=== PATIENT | female | born 1960 | race Caucasian/White ===

== ENCOUNTER → 2016-07-07 | Outpatient (CLI) | payer BC ==
[~2016-07-07] MED LIST: CALC-5 PO; PRLSR20 PO
== END | disposition home or self-care (01) ==
LOC: C.PATHSPEC 17:32
PROVIDERS: ATTEND Obstetrics & Gynecology
DX: R93.8 Abnormal findings on diagnostic imaging of other specified body structures (principal); N85.00 Endometrial hyperplasia, unspecified

== ENCOUNTER → 2016-09-01 | Outpatient (CLI) | payer BC ==
[2016-09-01 17:52] LABS: URINE APPEARANCE CLEAR (CLEAR); URINE BILIRUBIN NEG (NEG); URINE COLOR YELLOW; URINE EPITHELIAL CELL AUTO >30 /lpf (0-5); URINE NITRITE NEG (NEG); URINE SPECIFIC GRAVITY 1.001 (1.000-1.030); UROBILINOGEN NEG (NEG)
[2016-09-01 17:57] LABS: MANUAL MICROSCOPIC REQUIRED? NO; REVIEW REQ? NO
== END | disposition home or self-care (01) ==
LOC: C.LABPVFM 11:19
PROVIDERS: ATTEND Obstetrics & Gynecology
DX: R30.0 Dysuria (principal)

== ENCOUNTER → 2017-05-22 | Outpatient (CLI) | payer BC ==
--- NOTE | 2017-05-22 13:53 | MAMMOGRAPHY REPORT ---
BILATERAL DIGITAL SCREENING MAMMOGRAM TOMOSYNTHESIS WITH CAD: 05/22/2017 CLINICAL HISTORY: Routine screening. Patient has no complaints. TECHNIQUE: Breast tomosynthesis in addition to standard 2D mammography was performed. Current study was also evaluated with a Computer Aided Detection (CAD) system. COMPARISON: Comparison is made to exams dated: 05/20/2016 mammogram, 04/04/2015 mammogram, 06/23/2012 mammogram, 05/22/2009 mammogram - [facility], 05/16/2008, and 10/05/2006. BREAST COMPOSITION: There are scattered areas of fibroglandular density in both breasts. FINDINGS: No suspicious masses, calcifications, or areas of architectural distortion are noted in ei ther breast. There has been no significant interval change compared to prior exams. Scattered bilater al benign-appearing calcifications are not significantly changed. IMPRESSION: ACR BI-RADS CATEGORY 2: BENIGN There is no mammographic evidence of malignancy. A 1 year screening mammogram is recommended. The pa tient will receive written notification of the results. Approximately 10% of breast cancers are not detected with mammography. A negative mammographic report should not delay biopsy if a clinically suggestive mass is present. Elizabeth Almeida M.D. /:05/22/2017 12:39:42 Tax Services Intern: Mattie DUGAN(Bandar)(Elias)(LEEROY), [facility] letter sent: Normal 1/2 BI-RADS Code: ACR BI-RADS Category 2: Benign
== END | disposition home or self-care (01) ==
LOC: C.MAMM 11:19
PROVIDERS: ATTEND Nurse Practitioner Women's Health
DX: Z12.31 Encounter for screening mammogram for malignant neoplasm of breast (principal)

== ENCOUNTER 2024-01-10 23:55 | Observation (INO) ==
[2024-01-11] MEDS: dilTIAZem HCl 5 MG/ML 5 ML VIAL IV ONE (00:15)
[2024-01-11] MEDS: SODIUM CHLORIDE 0.9% 500 ML IV STA (00:15)
--- NOTE | 2024-01-11 00:25 | Emergency Department Note ---
History of Present Illness General Chief complaint: Cardiac Assessment Stated complaint: POSS. AFIB Time Seen by Provider: 01/11/24 00:00 History of Present Illness This 63-year-old female presents ER complaining of racing heart for the past hour with chest discomfort that goes to her throat. Patient states she woke up and felt like she might be in A-fib. No recent A-fib. She states she had a cough for the past 3 weeks. Patient denies dyspnea, abdominal pain, fever, chills, leg pain or swelling. No history of PE or DVT. No prior heart attack or stroke. Home Medications Medication Instructions Recorded Confirmed Type aspirin 81 mg tablet,delayed 81 mg PO DAILY #90 tabs 03/03/19 01/11/24 Rx release (Adult Low Dose Aspirin) azelaic acid 15 % topical gel 1 appln topical .COMPLEX PRN 03/07/19 01/11/24 Rx (Finacea) rosacea #50 grams coenzyme Q10 100 mg capsule 100 mg PO QAM 07/08/19 01/11/24 History cyanocobalamin (vitamin B-12) 2,500 mcg PO DAILY 07/08/19 01/11/24 History 2,500 mcg tablet cholecalciferol (vitamin D3) 25 5,000 unit PO DAILY 12/14/20 01/11/24 History mcg (1,000 unit) capsule fluticasone 250 mcg-salmeterol 50 1 inh inhalation BID PRN wheezing 04/07/22 01/11/24 Rx mcg/dose blistr powdr for #60 ea inhalation (Advair Diskus) calcium carbonate (Calcium 500) 1,000 mg PO DAILY 12/11/22 01/11/24 History sertraline 25 mg tablet 25 mg PO DAILY #90 tabs 04/03/23 01/11/24 Rx loratadine 10 mg tablet 10 mg PO DAILY PRN allergy 10/07/23 01/11/24 Rx symptoms #100 tabs atorvastatin 10 mg tablet 10 mg PO QPM #90 tabs 12/01/23 01/11/24 Rx metformin 500 mg tablet,extended 500 mg PO BID #60 tabs 12/01/23 01/11/24 Rx release 24 hr naltrexone 50 mg tablet 25 mg (1/2 x 50 mg) PO DAILY #15 12/21/23 01/11/24 Rx tabs albuterol sulfate 90 mcg/actuation 1 inh inhalation QID PRN Shortness 01/11/24 01/11/24 History aerosol inhaler Of Breath Or Wheezing famotidine 20 mg tablet 0 mg PO DAILY 01/11/24 01/11/24 History Allergies Allergy/AdvReac Type Severity Reaction Status Date / Time No Known Allergies Allergy Mild Verified 01/11/24 02:01 Past Med/Surg History Problem List (Updated 01/11/24 @ 00:25 by Tricia Burnette PA-C) Atrial fibrillation with rapid ventricular response (Acute) FHx: rheumatoid arthritis In brother Elevated antinuclear antibody (MARILYN) level Disordered eating Prediabetes Obesity Jaw pain Depression Dental caries Yeast infection Allergic rhinitis Fatigue Acid reflux disease (Chronic) Paroxysmal atrial fibrillation (Chronic) Hypertension (Chronic) Vitamin D deficiency (Chronic) Annual physical exam Hyperlipidemia (Chronic) Asthma (Chronic) Medical History (Updated 01/11/24 @ 00:25 by Tricia Burnette PA-C) Endometrial adenocarcinoma Vasovagal syncope Surgical History (Updated 12/02/23 @ 10:46 by Christopher Montero DO) History of total abdominal hysterectomy History of section History of hysterectomy with bilateral oophorectomy Family History Father Myocardial infarction Grandfather (Paternal) Myocardial infarction Aunt Ovarian cancer Brother Prostate cancer, Onset Age: 62 Denies family history of Breast cancer Colorectal cancer Social History Smoking Status: Former smoker Age Started Using Tobacco: 18; Age Quit Using Tobacco: 39; packs per day: 1; Cigarettes Per Day: 20; Second Hand Exposure: No; Do You Dip or Chew Tobacco: No; Hx Alcohol Use: Yes Alcohol type: hard liquor Alcohol type Comment: Rum and Coke Hx Substance Use: No Preferred Language: Danish Communication Ability: Effective Visual Impairment: No Limitations Hearing Ability: Normal marital status: Current Living Situation: Spouse current occupational status: retired How many Children do You have: 2 Feels Safe at Home: Yes Childhood Exposure to Second-Hand Smoke: Yes Diet: regular caffeine: Yes Dental Care, Regularly: Yes Physical Activity Frequency: Daily Seatbelt Use: always Sunscreen Use: Yes Review of Systems A total of 10 systems reviewed and were otherwise negative Physical Exam Vital Signs Vital Signs - 24 hr 01/10/24 23:57 01/11/24 00:10 01/11/24 00:17 Temperature 36.6 C Temperature Source Temporal Artery Scan Pulse Rate 130 H 110 H Pulse Rate [Apical] 87 Respiratory Rate 18 14 Respiratory Effort / Characteristics Non-Labored Spontaneous Respiratory Depth Normal Blood Pressure 155/94 H Blood Pressure [Left Arm] 135/83 Blood Pressure Mean 114 Blood Pressure Mean [Left Arm] 100 Pulse Oximetry 96 96 Oxygen Delivery Method Room Air Room Air Sepsis Recent Fever Within 48 Hours No Sepsis New/Unexplained Change in Mental Status N/A Sepsis Action Taken by Nursing No Action Required 01/11/24 02:00 01/11/24 03:00 Temperature Temperature Source Pulse Rate 60 Pulse Rate [Apical] 68 Respiratory Rate 12 16 Respiratory Effort / Characteristics Respiratory Depth Blood Pressure 99/72 L Blood Pressure [Left Arm] 126/71 Blood Pressure Mean 76 Blood Pressure Mean [Left Arm] 89 Pulse Oximetry 96 100 Oxygen Delivery Method Room Air Sepsis Recent Fever Within 48 Hours Sepsis New/Unexplained Change in Mental Status Sepsis Action Taken by Nursing VITALS: Vitals are noted on the nurse's note and reviewed by myself. Vital signs tachycardic GENERAL: Pleasant female, in no acute distress, nondiaphoretic, well-developed well-nourished. SKIN: Capillary reflex less than 2 seconds. HEENT: Normocephalic. PERRLA. EOMI. Nares patent. Mucous membranes moist. Neck is supple without nuchal rigidity. HEART: Tachycardic irregularly irregular LUNGS: Clear to auscultation bilaterally without wheezes, rales or rhonchi. No retractions or accessory muscle use. ABDOMEN: Positive bowel sounds x 4. Normal tympanic percussion. Soft, nontender, without masses or organomegaly. Shook sign negative. No guarding or rebound tenderness. no CVA tenderness MUSCULOSKELETAL: No gross musculoskeletal defects. NEURO: Patient was alert and oriented to person place and time. No focal neurological deficits. Course Administered Medications Discontinued Medications Diltiazem HCl (Diltiazem Hcl 5 Mg/Ml 5 Ml Vial) Confirm Administered Dose 25 mg IV .nTAG Interactive-MED ONE Stop: 01/11/24 00:08 Last Admin: 01/11/24 00:15 Dose: Not Given Documented By: CHERELLE Diltiazem HCl (Diltiazem Hcl 5 Mg/Ml 5 Ml Vial) 20 mg IV NOW STA Stop: 01/11/24 00:08 Last Admin: 01/11/24 00:50 Dose: Not Given Documented By: CHERELLE Diltiazem HCl (Diltiazem Hcl 5 Mg/Ml 5 Ml Vial) 10 mg IV NOW STA Stop: 01/11/24 00:50 Last Admin: 01/11/24 00:52 Dose: 10 mg Documented By: CHERELLE Co-signed By: CHICHI Sodium Chloride (Nss) 500 mls @ 999 mls/hr IV .Q31M STA Stop: 01/11/24 00:37 Last Infusion: 01/11/24 00:49 Dose: Infused Documented By: Admin: 01/11/24 00:15 Dose: 999 mls/hr Documented By: CHERELLE Diltiazem HCl 125 mg/ Dextrose 125 mls @ 5 mls/hr IV .Q24H [facility]; Protocol Stop: 02/10/24 00:14 Last Admin: 01/11/24 00:48 Dose: Not Given Documented By: CHERELLE Ioversol (Optiray 320 125ml) 125 ml IV ONCE ONE Stop: 01/11/24 01:57 Last Admin: 01/11/24 01:56 Dose: 118 ml Documented By: YUIR Sinhaaneous (Stat Iv Infusion Titration Per Protocol) 1 each N/A NOW STA Stop: 01/11/24 00:08 Last Admin: 01/11/24 03:03 Dose: Not Given Documented By: OSEI Critical Care Time Critical Care Time: Yes Total Critical Care Time: 35 I have personally spent 35 minutes of critical care time in the direct management of this patient. This includes bedside care, interpretation of diagnostic studies, and testing, discussion with consultants, patient, and family members, and other required patient management activities. This 35 minutes is in excess of all separately billable procedures. Medical Decision Making Medical Records Attestation: I reviewed the patient's medical records. Home Medications Current Medication List: was personally reviewed by me Laboratory Data Attestation: I reviewed the patient's lab results. 01/11/24 00:13 01/11/24 00:13 Lab Results 01/11/24 01/11/24 01/11/24 Range/Units 00:13 00:16 02:19 WBC 10.68 (4.8-10.8) K/ul RBC 4.62 (4.20-5.40) M/uL Hgb 14.4 (12.0-16.0) g/dl Hct 43.3 (37.0-47.0) % MCV 93.7 (80.0-100.0) fL MCH 31.2 (25.0-34.0) pg MCHC 33.3 (32.0-36.0) g/dL RDW Std Deviation 44.1 (36.4-46.3) fL RDW Coeff of Stevan 12.9 (11.5-14.5) % Plt Count 236 (130-400) K/uL MPV 11.0 (9.4-12.4) fL Immature Gran % (Auto) 0.2 % Neut % (Auto) 57.7 % Lymph % (Auto) 31.3 % [place] % (Auto) 8.6 % Eos % (Auto) 1.7 % Baso % (Auto) 0.5 % Neut # (Auto) 6.17 (1.40-6.50) K/uL Lymph # (Auto) 3.34 (1.20-3.40) K/uL [place] # (Auto) 0.92 H (0.11-0.59) K/uL Eos # (Auto) 0.18 (0.00-0.50) K/uL Baso # (Auto) 0.05 (0.00-0.20) K/uL Immature Gran # (Auto) 0.02 (0.01-0.20) K/uL PT 9.9 (9.0-12.0) Seconds INR 0.9 (0.9-1.1) APTT 30 (21-31) Seconds PTT Ratio 1.1 Sodium 141 (136-145) mmol/L Potassium 3.6 (3.5-5.1) mmol/L Chloride 106 (98-107) mmol/L Carbon Dioxide 27 (21-32) mmol/L Anion Gap 8 (3-11) BUN 20 (6-23) mg/dl Creatinine 0.83 (0.6-1.2) mg/dl Est Cr Clr Drug Dosing 77.3 ml/min Est GFR ( Amer) 86.4 ml/min Est GFR (Non-Af Amer) 74.5 ml/min BUN/Creatinine Ratio 24.1 H (10-20) Glucose 109 H (70-99(Fasting)) mg/dl Calcium 9.5 (8.6-10.3) mg/dl Magnesium 2.1 (1.7-2.4) mg/dl Total Bilirubin 0.5 (0.2-1.0) mg/dl AST 17 (13-39) U/L ALT 16 (7-52) U/L Alkaline Phosphatase 93 (34-104) U/L Troponin I High Sens 12.7 13.3 (0-14) pg/ml Total Protein 7.2 (6.0-8.3) gm/dl Albumin 4.5 (3.4-5.0) gm/dl Globulin 2.7 (2.5-4.0) gm/dl Albumin/Globulin Ratio 1.7 (0.9-2) TSH 3.248 (0.300-4.500) uIu/ml Ethyl Alcohol mg/dL < 10.0 (<10.0) mg/dl Adenovirus (PCR) Not Detected (NotDetected) B. pertussis DNA (PCR) Not Detected (NotDetected) B.parapertussis DNA PCR Not Detected (NotDetected) C. pneumoniae DNA (PCR) Not Detected (NotDetected) Coronavirus OC43 (PCR) Not Detected (NotDetected) Coronavirus HKU1 (PCR) Not Detected (NotDetected) Coronavirus 229E (PCR) Not Detected (NotDetected) SARS-CoV-2 (PCR) Not Detected (NotDetected) Coronavirus NL63 (PCR) Not Detected (NotDetected) Human Metapneumovir PCR Not Detected (NotDetected) Influenza Type A (PCR) Not Detected (NotDetected) Influenza Type B (PCR) Not Detected (NotDetected) M. pneumoniae (PCR) Not Detected (NotDetected) Parainfluenza 1 (PCR) Not Detected (NotDetected) Parainfluenza 2 (PCR) Not Detected (NotDetected) Parainfluenza 3 (PCR) Not Detected (NotDetected) Parainfluenza 4 (PCR) Not Detected (NotDetected) RSV (PCR) Not Detected (NotDetected) Entero/Rhino (PCR) Not Detected (NotDetected) Imaging Data Attestation: I personally reviewed and interpreted this imaging study as follows: Radiologist's Impression: Chest CTA 01/11/24 00:08 Exam(s): CTA CHEST IV Amt: 118 ml optiray 320 EXAM: CT Angiography Chest With Intravenous Contrast CLINICAL HISTORY: Reason for exam: PE. TECHNIQUE: Axial computed tomographic angiography images of the chest with intravenous contrast. CTDI is 27.07 mGy and DLP is 748.85 mGy-cm. Automated exposure control was utilized for the study. A dose lowering technique was utilized adhering to the principles of ALARA. MIP reconstructed images were created and reviewed. COMPARISON: No relevant prior studies available. FINDINGS: Pulmonary arteries: The pulmonary arterial tree is well opacified with contrast. No pulmonary embolism is identified. Aorta: The thoracic aorta is nondilated. There is no aneurysm or dissection. Lungs: Small amount of scattered bibasilar subsegmental atelectasis. No focal consolidation is seen. No pneumothorax or pleural effusion. Pleural space: See above. Heart: The heart is mildly enlarged. No pericardial effusion is seen. No evidence of RV dysfunction. Bones/joints: Mild degenerative changes throughout the spine. No acute fracture or destructive bone lesion is seen. No dislocation. Soft tissues: Unremarkable. Lymph nodes: Unremarkable. No enlarged lymph nodes. IMPRESSION: 1. Small amount of scattered bibasilar subsegmental atelectasis. No focal consolidation is seen. No pneumothorax or pleural effusion. 2. The thoracic aorta is nondilated. There is no aneurysm or dissection. 3. The pulmonary arterial tree is well opacified with contrast. No pulmonary embolism is identified. Electronically signed by: Santos Lopez MD 01/11/24 03:22 AM [facility] Narrative Prior records/ancillary studies reviewed. Triage Nursing notes reviewed. Additional history obtained from family. The patient's history was concerning for palpitations. Differential diagnosis: Etiologies such as premature contractions, electrolyte abnormality, cardiac dysrhythmia, thyroid dysfunction, pulmonary embolism, infection, gastrointestinal, as well as others were entertained. Physical examination: Benign as above. ER treatment provided: Cardizem, IV fluids On reassessment the patient felt better. Diagnostic interpretation by me: An order was placed for continuous cardiac monitoring. The monitor shows a rate of 60-1 50 with a A-fib rhythm per my interpretation. The electrocardiogram was ordered for palpitaions ECG: Irregularly irregular with no acute ST-T wave changes. Impression A-fib RVR independently interpreted by myself EKG ordered for chest pain EKG: Normal sinus, normal intervals, no acute ST-T wave changes. Impression normal sinus rhythm independently interpreted by myself The labs Independently Interpreted by myself revealed no worrisome leukocytosis, stable H&H, glucose 109 Imaging studies: Chest x-ray with no acute consolidation, pneumothorax or free air per my independent interpretation HEART SCORE: Hx: high/mod/low suspicion: 0 ECG: ST depression/nonspecific changes/normal: 1 Age: Greater than 65/45-64/less than 45: 1 Risk factors: (Hypertension, hyperlipidemia, diabetes, coronary disease, tobacco use, cocaine use): 1 Troponin: Greater than 2 times normal limits/1-2 times normal limits/normal: 0 Total: 3 CHADS2 Score Sex (male 0, female 1): 1 Congestive HF (1): 0 Hypertension (1) :1 Age >75 years (1) :0 Diabetes mellitus (1):1 Stroke/TIA/TE (2): 0 Score: 3 CHADS2 Unadjusted ischemic stroke rate (% per year) 0: 0.6% 1: 3.0% 2: 4.2% 3: 7.1% 4: 11.1% 5: 12.5% 6: 13.0% Consultation: A consultation was placed with the hospitalist. The case was discussed and diagnostics were reviewed. The patient was evaluated in the ER for further treatment. This appears to be consistent with A-fib with RVR. Patient's ischemic stroke score was 7.1% (she has high blood pressure, diabetes and female). Patient was given Cardizem. Heart rate improved. Medicine was consulted and the case was discussed. She will be admitted to the medical service. Patient is agreeable. By the evaluation outlined above emergent etiologies such as electrolyte abnormality, thyroid dysfunction, pulmonary embolism, infection, as well as others were deemed relatively unlikely. The pt informed about the findings as listed above. All questions were answered and pleased with the treatment. The chart was completed utilizing [employer] voice recognition software. Grammatical errors, random word insertions, pronoun errors, and incomplete sentences are an occassional consequence of this system due to software limitations, ambient noise, and hardware issues. Any formal questions or concerns about the content, text, or information contained within the body of this dictation should be directly addressed to the physician assistant fitness manager for clarification. Impression & Plan Atrial fibrillation with rapid ventricular response Discharge Plan Visit Data Chief Complaint: Cardiac Assessment Stated Complaint: POSS. AFIB ED Provider: Yu Zepeda ED Midlevel Provider: Tricia Burnette Discharge Problem: Atrial fibrillation with rapid ventricular response Patient Disposition: Admitted As Inpatient Condition: Good Forms Stand Alone Forms: [facility] [place] Prescriptions Prescriptions: No Action aspirin [Adult Low Dose Aspirin] 81 mg tablet,delayed release (DR/EC) 81 mg PO DAILY Qty: 90 3RF azelaic acid [Finacea] 15 % gel 1 appln TOP .COMPLEX PRN (Reason: rosacea) Qty: 50 1RF Rx Instructions: 1 applic TOP apply sparingly daily to face PRN; cholecalciferol (vitamin D3) 25 mcg (1,000 unit) capsule 5,000 unit PO DAILY fluticasone propion-salmeterol [Advair Diskus] 250-50 mcg/dose blister with device 1 inh inhalation BID PRN (Reason: wheezing) Qty: 60 11RF sertraline 25 mg tablet 25 mg PO DAILY Qty: 90 3RF loratadine 10 mg tablet 10 mg PO DAILY PRN (Reason: allergy symptoms) Qty: 100 3RF atorvastatin 10 mg tablet 10 mg PO QPM Qty: 90 3RF calcium carbonate [Calcium 500] 500 mg calcium (1,250 mg) tablet,chewable 1,000 mg PO DAILY coenzyme Q10 100 mg capsule 100 mg PO QAM cyanocobalamin (vitamin B-12) 2,500 mcg tablet 2,500 mcg PO DAILY metformin 500 mg tablet extended release 24 hr 500 mg PO BID Qty: 60 2RF Rx Instructions: Take with food. naltrexone 50 mg tablet 25 mg PO DAILY Qty: 15 2RF famotidine 20 mg Tablet 0 mg PO DAILY Rx Instructions: PT UNSURE OF STRENGTH, UNABLE TO VERIFY albuterol sulfate 90 mcg/actuation Hfa Aerosol Inhaler 1 inh INHALATION QID PRN (Reason: Shortness Of Breath Or Wheezing) Referrals Referrals: Christopher Montero DO [Primary Care Provider] -
[2024-01-11 00:39] LABS: Basophils # (auto) 0.05 K/uL (0.00-0.20); Basophils % (auto) 0.5 %; Eosinophils # (auto) 0.18 K/uL (0.00-0.50); Eosinophils % (auto) 1.7 %; Hematocrit (blood only) 43.3 % (37.0-47.0); Hemoglobin 14.4 g/dl (12.0-16.0); Immature Granulocytes # (auto) 0.02 K/uL (0.01-0.20); Immature Granulocytes % (auto) 0.2 %; Lymphocytes # (auto) 3.34 K/uL (1.20-3.40); Lymphocytes % (auto) 31.3 %; Mean Corpuscular Hemoglobin 31.2 pg (25.0-34.0); Mean Corpuscular Hgb Conc 33.3 g/dL (32.0-36.0); Mean Corpuscular Volume 93.7 fL (80.0-100.0); Monocytes # (auto) 0.92 K/uL (0.11-0.59); Monocytes % (auto) 8.6 %; Neutrophils # (auto) 6.17 K/uL (1.40-6.50); Neutrophils % (auto) 57.7 %; Platelet Count 236 K/uL (130-400); RDW Coefficient of Variation 12.9 % (11.5-14.5); RDW Standard Deviation 44.1 fL (36.4-46.3); Red Blood Count 4.62 M/uL (4.20-5.40); White Blood Count 10.68 K/ul (4.8-10.8)
[2024-01-11] MEDS: dilTIAZem HCL 125 MG in DEXTROSE 5% 100 ML IV SCH (00:48)
[2024-01-11] MEDS: dilTIAZem HCl 5 MG/ML 5 ML VIAL IV STA ×2 (00:50→00:52)
[2024-01-11 00:51] LABS: Albumin Globulin Ratio 1.7 (0.9-2); Albumin Level 4.5 gm/dl (3.4-5.0); BUN Creatinine Ratio 24.1 (10-20); Bilirubin,Total 0.5 mg/dl (0.2-1.0); Calcium 9.5 mg/dl (8.6-10.3); Creatinine Clr Calc Pharmacy 77.3 ml/min; Est GFR (African American) 86.4 ml/min; Est GFR (Non-African American) 74.5 ml/min; Globulin 2.7 gm/dl (2.5-4.0); Magnesium 2.1 mg/dl (1.7-2.4); Potassium 3.6 mmol/L (3.5-5.1); Total Protein 7.2 gm/dl (6.0-8.3)
[2024-01-11 00:58] LABS: Troponin I High Sensitivity 12.7 pg/ml (0-14)
[2024-01-11 01:03] LABS: INR 0.9 (0.9-1.1); Partial Thromboplastin Ratio 1.1; Partial Thromboplastin Time 30 Seconds (21-31); Prothrombin Time 9.9 Seconds (9.0-12.0)
[2024-01-11 01:07] LABS: Thyroid Stimulating Hormone 3.248 uIu/ml (0.300-4.500)
[2024-01-11 01:24] LABS: Adenovirus PCR Not Detected (NotDetected); Bordetella parapertussis PCR Not Detected (NotDetected); Bordetella pertussis PCR Not Detected (NotDetected); Chlamydia pneumoniae PCR Not Detected (NotDetected); Coronavirus 229E PCR Not Detected (NotDetected); Coronavirus CoV-2 (COVID19)PCR Not Detected (NotDetected); Coronavirus HKU1 PCR Not Detected (NotDetected); Coronavirus NL63 PCR Not Detected (NotDetected); Coronavirus OC43PCR Not Detected (NotDetected); Human Metapneumovirus PCR Not Detected (NotDetected); Influenza A PCR Not Detected (NotDetected); Influenza B PCR Not Detected (NotDetected); Mycoplasma pneumoniae PCR Not Detected (NotDetected); Parainfluenza Virus 1 PCR Not Detected (NotDetected); Parainfluenza Virus 2 PCR Not Detected (NotDetected); Parainfluenza Virus 3 PCR Not Detected (NotDetected); Parainfluenza Virus 4 PCR Not Detected (NotDetected); Respiratory Syncytial VirusPCR Not Detected (NotDetected); Rhinovirus/Enterovirus PCR Not Detected (NotDetected)
[2024-01-11] MEDS: OPTIRAY 320 125ml IV ONE (01:56)
--- NOTE | 2024-01-11 02:36 | History & Physical Report ---
Date of Service January 11, 2024 Assessment & Plan (1) Atrial fibrillation with rapid ventricular response: (2) Prediabetes: (3) Obesity: (4) Depression: (5) Acid reflux disease: Plan Atrial Fibrillation with RVR -Received 1x IV push Cardizem, has remained in sinus rhythm since -Admit to telemetry for observation -BP a bit low after Cardizem (currently 99/72), will hold additional meds at this time -Cardiology consulted, appreciate recommendations for rate/rhythm control and consideration for anticoagulation -Echocardiogram ordered -Trop repeat with minimal elevation, repeat pending -Will supplement potassium (K 3.6) Pre-Diabetes -Hold home metformin -Monitor BSG, will defer insulin at this time Asthma -Continue home inhalers Obesity -Continue naltrexone Depression -Continue sertraline Admit to: telemetry Diet: carb consistent VTE Prophylaxis: Heparin Code Status: Conditional, no intubation or ventilator History of Present Illness Primary Care Provider: Christopher Montero DO Taryn Perry is a 63 year-old female with past medical history of acid reflux, HTN, HLD, asthma, obesity who presented to the ED after awakening overnight to chest pain and palpitations. She has a history of paroxysmal atrial fibrillation, notes her only prior episode occurred in the mid while she was in the hospital with a broken leg. In 2021 she was seen by [facility] [place] for paroxysmal a. fib and had a 30 day event monitor which did not show any episodes of atrial fibrillation. She states that this past week has been a bit stressful as her [id number]-ewd and in the past few days she has been busy with family in town/services etc, also endorses that yesterday she ate notably more salt that usual. Otherwise she has been feeling well, denies fever/body aches/chills. Endorses an occasional cough associated with post nasal drip but denies shortness of breath. Denies changes in bowel or bladder habits. At time of encounter, patient is in normal sinus rhythm and states her prior symptoms have resolved. Patient follows with weight management and endorses recently starting Naltrexone for food cravings, has been on it for approximately two weeks, states she has tolerated it well without side effects. She denies any other recent changes to her home medications. ED Course: -Diltiazem IV Push -CXR, CTA chest, CBC, CMP Allergies Allergy/AdvReac Type Severity Reaction Status Date / Time No Known Allergies Allergy Mild Verified 01/13/24 11:46 Home Medications Medication Instructions Recorded Confirmed Type aspirin 81 mg tablet,delayed 81 mg PO DAILY #90 tabs 03/03/19 01/13/24 Rx release (Adult Low Dose Aspirin) azelaic acid 15 % topical gel 1 appln topical .COMPLEX PRN 03/07/19 01/13/24 Rx (Finacea) rosacea #50 grams coenzyme Q10 100 mg capsule 100 mg PO QAM 07/08/19 01/13/24 History cyanocobalamin (vitamin B-12) 2,500 mcg PO DAILY 07/08/19 01/13/24 History 2,500 mcg tablet cholecalciferol (vitamin D3) 25 5,000 unit PO DAILY 12/14/20 01/13/24 History mcg (1,000 unit) capsule fluticasone 250 mcg-salmeterol 50 1 inh inhalation BID PRN wheezing 04/07/22 Rx mcg/dose blistr powdr for #60 ea inhalation (Advair Diskus) calcium carbonate (Calcium 500) 1,000 mg PO DAILY 12/11/22 01/13/24 History sertraline 25 mg tablet 25 mg PO DAILY #90 tabs 04/03/23 01/13/24 Rx loratadine 10 mg tablet 10 mg PO DAILY PRN allergy 10/07/23 01/13/24 Rx symptoms #100 tabs atorvastatin 10 mg tablet 10 mg PO QPM #90 tabs 12/01/23 01/13/24 Rx metformin 500 mg tablet,extended 500 mg PO BID #60 tabs 12/01/23 01/13/24 Rx release 24 hr naltrexone 50 mg tablet 25 mg (1/2 x 50 mg) PO DAILY #15 12/21/23 01/13/24 Rx tabs albuterol sulfate 90 mcg/actuation 1 inh inhalation QID PRN Shortness 01/11/24 01/13/24 History aerosol inhaler Of Breath Or Wheezing apixaban 5 mg tablet (Eliquis) 5 mg PO BID #60 tabs 01/11/24 01/13/24 Rx famotidine 20 mg tablet 0 mg PO DAILY 01/11/24 01/13/24 History metoprolol tartrate 25 mg tablet 25 mg PO DAILY PRN irregular heart 01/11/24 01/13/24 Rx beat / palpitations #30 tabs Past Med/Surg History Problem List (Updated 01/11/24 @ 09:57 by Kenneth Benavidez MD) Chest pain syndrome Atrial fibrillation with rapid ventricular response (Acute) FHx: rheumatoid arthritis In brother Elevated antinuclear antibody (MARILYN) level Disordered eating Prediabetes Obesity Jaw pain Depression Dental caries Yeast infection Allergic rhinitis Fatigue Acid reflux disease (Chronic) Paroxysmal atrial fibrillation (Chronic) Hypertension (Chronic) Vitamin D deficiency (Chronic) Annual physical exam Hyperlipidemia (Chronic) Asthma (Chronic) Medical History (Updated 01/11/24 @ 09:57 by Kenneth Benavidez MD) Endometrial adenocarcinoma Vasovagal syncope Surgical History (Updated 12/02/23 @ 10:46 by Christopher Montero DO) History of total abdominal hysterectomy History of section History of hysterectomy with bilateral oophorectomy Family History Father Myocardial infarction Grandfather (Paternal) Myocardial infarction Aunt Ovarian cancer Brother Prostate cancer, Onset Age: 62 Denies family history of Breast cancer Colorectal cancer Social History Smoking Status: Former smoker Age Started Using Tobacco: 18; Age Quit Using Tobacco: 39; packs per day: 1; Cigarettes Per Day: 20; Second Hand Exposure: No; Do You Dip or Chew Tobacco: No; Hx Alcohol Use: Yes Alcohol type: hard liquor Alcohol type Comment: Rum and Coke Hx Substance Use: No Preferred Language: Bolivian Communication Ability: Effective Visual Impairment: No Limitations Hearing Ability: Normal Sole Seamer Required: No Beliefs That Will Affect Care: None marital status: Current Living Situation: Spouse current occupational status: retired How many Children do You have: 2 Feels Safe at Home: Yes Childhood Exposure to Second-Hand Smoke: Yes Diet: regular caffeine: Yes Dental Care, Regularly: Yes Physical Activity Frequency: Daily Seatbelt Use: always Sunscreen Use: Yes Assistive Devices: Glasses Review of Systems Review of Systems: As per above Physical Exam Constitutional: WD/WN, vitals as above Eyes: no conjunctival abnormality ENMT: Ears: no external ear abnormality Nose: no external nose abnormality Moist mucous membranes Respiratory: normal respiratory effort, lungs clear to auscultation Cardiovascular: RRR, no murmur, no edema Gastrointestinal (Abdomen): Inspection/Auscultation: abdomen normal to inspection Percussion/Palpation: abdomen soft; abdomen nontender Musculoskeletal: Moves all limbs independently Skin: no rashes, warm and dry Neurologic: No focal defects Psychiatric: A+Ox3, euthymic affect Results & Data Results & Data Vital Signs (Past 12 Hours) Vital Signs Temp Pulse Pulse Resp BP BP Pulse Ox 01/11/24 02:00 68 12 126/71 96 01/11/24 00:17 87 14 135/83 96 01/11/24 00:10 110 H 01/10/24 23:57 36.6 C 130 H 18 155/94 H 96 O2 Del Method 01/11/24 02:00 Room Air 01/11/24 00:17 Room Air 01/11/24 00:10 01/10/24 23:57 Room Air Supervising Physician Co-Signing Physician Notes Attending addendum: I have physically seen this patient, have supervised the medical residents activities, and agree with the H&P unless as otherwise noted. Assessment and Plan: Atrial fibrillation with RVR- Status post diltiazem push 20 mg IV from the ED EKG with atrial fibrillation at rate 123 Follow-up EKG with normal sinus rhythm at 69 The patient will be admitted to telemetry for serial cardiac enzymes, serial EKG's, cardiac rhythm monitoring and a 2-D echocardiogram with Dopplers. Potassium 3.6, give oral IV daptomycin for Magnesium level ordered and pending Follow serial laboratories Prediabetes- Hold metformin Placed on Accu-Cheks with NovoLog SSI Asthma- Continue routine inhalers Remaining orders and notations as noted Resident Activity Tracking Resident Involvement: Resident Care Provided Care Provided: Adult Hospital Medicine (3) Obesity Body mass index: BMI 39.0-39.9 Obesity classification: adult class 2 (BMI 35 - 39.9) Obesity type: unspecified obesity type Serious obesity comorbidity presence: unspecified whether serious comorbidity present Qualified Code(s): E66.9 - Obesity, unspecified; Z68.39 - Body mass index [BMI] 39.0-39.9, adult
[2024-01-11] MEDS: STAT IV Infusion **Titration per Protocol STA (03:03)
--- NOTE | 2024-01-11 03:23 | CT Scan Report ---
Exam(s): CTA CHEST IV Amt: 118 ml optiray 320 EXAM: CT Angiography Chest With Intravenous Contrast CLINICAL HISTORY: Reason for exam: PE. TECHNIQUE: Axial computed tomographic angiography images of the chest with intravenous contrast. CTDI is 27.07 mGy and DLP is 748.85 mGy-cm. Automated exposure control was utilized for the study. A dose lowering technique was utilized adhering to the principles of ALARA. MIP reconstructed images were created and reviewed. COMPARISON: No relevant prior studies available. FINDINGS: Pulmonary arteries: The pulmonary arterial tree is well opacified with contrast. No pulmonary embolism is identified. Aorta: The thoracic aorta is nondilated. There is no aneurysm or dissection. Lungs: Small amount of scattered bibasilar subsegmental atelectasis. No focal consolidation is seen. No pneumothorax or pleural effusion. Pleural space: See above. Heart: The heart is mildly enlarged. No pericardial effusion is seen. No evidence of RV dysfunction. Bones/joints: Mild degenerative changes throughout the spine. No acute fracture or destructive bone lesion is seen. No dislocation. Soft tissues: Unremarkable. Lymph nodes: Unremarkable. No enlarged lymph nodes. IMPRESSION: 1. Small amount of scattered bibasilar subsegmental atelectasis. No focal consolidation is seen. No pneumothorax or pleural effusion. 2. The thoracic aorta is nondilated. There is no aneurysm or dissection. 3. The pulmonary arterial tree is well opacified with contrast. No pulmonary embolism is identified. Electronically signed by: Santos Lopez MD 01/11/24 03:22 AM
[2024-01-11] MEDS ORDERED: ALBUTEROL HFA 8 GM INHALER INH PRN (05:16)
[2024-01-11] MEDS ORDERED: LORATADINE 10 MG TAB PO PRN (05:16)
[2024-01-11] MEDS ORDERED: POLYETHYLENE (MIRALAX) 17 GM PACK PO PRN (05:16)
[2024-01-11] MEDS ORDERED: ACETAMINOPHEN 325 MG TAB PO PRN (05:16)
[2024-01-11] MEDS: POTASSIUM CHLORIDE CRTAB 20 MEQ TABCR PO STA ×2 (05:36→11:41)
--- NOTE | 2024-01-11 06:47 | XRay Report ---
XR chest 1V portable CLINICAL HISTORY: Dysrhythmia. COMPARISON STUDY: Chest radiograph December 05, 2017. FINDINGS: Lung volumes are normal. Lungs are clear. There is no pneumothorax or pleural effusion. Car diomegaly is unchanged. Mediastinal contours are normal. There is no evidence for pulmonary edema. IMPRESSION: No acute cardiopulmonary findings. ACT 112: Negative or not required by law. Electronically signed by: Bg Mejia M.D. 01/11/2024 6:45 AM
[2024-01-11] MEDS: ASPIRIN 81 MG ECTAB PO SCH (07:41)
[2024-01-11] MEDS: FAMOTIDINE 20 MG TAB PO SCH (07:41)
[2024-01-11] MEDS: SERTRALINE HCL 50 MG TABLET PO SCH (07:41)
[2024-01-11] MEDS: HEPARIN SOD 5,000 UNIT/0.5 ML VIAL SQ SCH (07:41)
[2024-01-11] MEDS: FLUTICASONE/VILANTEROL 200/25MCG 14 PUFFS/INHALER INH SCH (07:41)
[2024-01-11] MEDS: NALTREXONE HCL 50 MG TAB PO SCH (07:42)
--- NOTE | 2024-01-11 09:25 | XCELERA ---
[id number]
--- NOTE | 2024-01-11 10:00 | Cardiology Consultation ---
Date of Consultation January 11, 2024 Assessment & Plan (1) Paroxysmal atrial fibrillation: -Total duration approximately 2 hours in length. -Converted spontaneously to normal sinus rhythm. -Would start long-term anticoagulation as her [id number] score is at least 2 (hypertension, gender), if not for (hyperglycemia, borderline age). -Reduce metoprolol to tartrate 25 mg as needed rapid atrial fibrillation. -Stable for hospital discharge. (2) Chest pain syndrome: -Likely secondary to atrial fibrillation with rapid ventricular response. -Fortunately, high-sensitivity troponins normal in the face of 2 hours of rapid atrial fibrillation. -No indication of an acute coronary syndrome. (3) Hypertension: -Adequate control on current regimen. (4) Hyperlipidemia: -Continue atorvastatin. History of Present Illness Attending Physician: Wilda Gaines MD History of Present Illness Mrs. Perry is a 63-year-old female admitted earlier today after a paroxysm of atrial fibrillation. This consultation was ordered to assist in cardiac management. Of note, the patient is well-known to me from the outpatient setting. The patient was in her usual state of health until late last evening when she was awakened from a sound sleep with palpitations, a rapid heart rate, and a right-sided chest discomfort. This was reminiscent of her initial episode of atrial fibrillation which occurred back in 2006. On arrival here, patient was noted to be in atrial fibrillation with a rapid ventricular response. She received intravenous diltiazem and spontaneously converted to sinus rhythm. We have had a long discussion regarding the management of paroxysmal atrial fibrillation and her particular situation. Currently, patient is resting comfortably in bed without complaints. Past medical and surgical history 1. Minimal coronary artery diseaseAugust 2009 2. Hypertension 3. Hypercholesterolemia 4. Paroxysmal atrial [id number], ankle fracture 5. Vasovagal syncope 6. Symptomatic PVCs 7. Hyperglycemia 8. GERD 9. Vitamin D deficiency 10. ABDIAS/BSO 11. Social history and lives with her Quit tobacco use at age 39 Social alcohol Family history Father at the age of 44 from an PR Review of systems A 10 point review of system was undertaken and negative except described above. Allergies Allergy/AdvReac Type Severity Reaction Status Date / Time No Known Allergies Allergy Mild Verified 01/11/24 02:01 Home Medications Medication Instructions Recorded Confirmed Type aspirin 81 mg tablet,delayed 81 mg PO DAILY #90 tabs 03/03/19 01/11/24 Rx release (Adult Low Dose Aspirin) azelaic acid 15 % topical gel 1 appln topical .COMPLEX PRN 03/07/19 01/11/24 Rx (Finacea) rosacea #50 grams coenzyme Q10 100 mg capsule 100 mg PO QAM 07/08/19 01/11/24 History cyanocobalamin (vitamin B-12) 2,500 mcg PO DAILY 07/08/19 01/11/24 History 2,500 mcg tablet cholecalciferol (vitamin D3) 25 5,000 unit PO DAILY 12/14/20 01/11/24 History mcg (1,000 unit) capsule fluticasone 250 mcg-salmeterol 50 1 inh inhalation BID PRN wheezing 04/07/22 01/11/24 Rx mcg/dose blistr powdr for #60 ea inhalation (Advair Diskus) calcium carbonate (Calcium 500) 1,000 mg PO DAILY 12/11/22 01/11/24 History sertraline 25 mg tablet 25 mg PO DAILY #90 tabs 04/03/23 01/11/24 Rx loratadine 10 mg tablet 10 mg PO DAILY PRN allergy 10/07/23 01/11/24 Rx symptoms #100 tabs atorvastatin 10 mg tablet 10 mg PO QPM #90 tabs 12/01/23 01/11/24 Rx metformin 500 mg tablet,extended 500 mg PO BID #60 tabs 12/01/23 01/11/24 Rx release 24 hr naltrexone 50 mg tablet 25 mg (1/2 x 50 mg) PO DAILY #15 12/21/23 01/11/24 Rx tabs albuterol sulfate 90 mcg/actuation 1 inh inhalation QID PRN Shortness 01/11/24 01/11/24 History aerosol inhaler Of Breath Or Wheezing famotidine 20 mg tablet 0 mg PO DAILY 01/11/24 01/11/24 History Patient History Medical History (Updated 01/11/24 @ 09:57 by Kenneth Benavidez MD) Endometrial adenocarcinoma Vasovagal syncope Surgical History (Updated 12/02/23 @ 10:46 by Christopher Montero DO) History of total abdominal hysterectomy History of section History of hysterectomy with bilateral oophorectomy Family History Father Myocardial infarction Grandfather (Paternal) Myocardial infarction Aunt Ovarian cancer Brother Prostate cancer, Onset Age: 62 Denies family history of Breast cancer Colorectal cancer Social History Smoking Status: Former smoker Age Started Using Tobacco: 18; Age Quit Using Tobacco: 39; packs per day: 1; Cigarettes Per Day: 20; Second Hand Exposure: No; Do You Dip or Chew Tobacco: No; Hx Alcohol Use: Yes Alcohol type: hard liquor Alcohol type Comment: Rum and Coke Hx Substance Use: No Preferred Language: Belarusian Communication Ability: Effective Visual Impairment: No Limitations Hearing Ability: Normal Childcare Attendant Required: No Beliefs That Will Affect Care: None marital status: Current Living Situation: Spouse current occupational status: retired How many Children do You have: 2 Other Information That Helps Us Care for You: No Feels Safe at Home: Yes Safety Concerns: Feels Safe At This Time Childhood Exposure to Second-Hand Smoke: Yes Diet: regular caffeine: Yes Dental Care, Regularly: Yes Physical Activity Frequency: Daily Seatbelt Use: always Sunscreen Use: Yes Assistive Devices: Glasses Physical Exam Physical Exam: In general this is a well-developed well-nourished white female in no acute distress. HEENT exam is negative. Neck reveals normal carotid upstrokes without bruits. Jugular venous pressure is flat at 90. There is no thyromegaly. Cardiovascular exam reveals a regular rhythm with a normal S1 and S2. No S3, S4, or murmurs are noted. Lungs are clear without rales, rhonchi, or wheezes. Abdomen is soft without bruits. Extremities reveal intact radial artery and posterior tibial pulses bilaterally. There is no peripheral edema. Results & Data Vital Signs (Past 12 Hours) Vital Signs Temp Pulse Pulse Resp BP BP BP 01/11/24 07:57 36.4 C L 69 18 116/75 01/11/24 05:17 01/11/24 05:17 36.4 C L 63 18 131/73 01/11/24 05:06 64 01/11/24 04:00 54 L 16 116/69 01/11/24 04:00 60 01/11/24 03:00 60 16 99/72 L 01/11/24 02:00 68 12 126/71 01/11/24 00:17 87 14 135/83 01/11/24 00:10 110 H 01/10/24 23:57 36.6 C 130 H 18 155/94 H Pulse Ox O2 Del Method 01/11/24 07:57 96 Room Air 01/11/24 05:17 Room Air 01/11/24 05:17 97 Room Air 01/11/24 05:06 01/11/24 04:00 98 01/11/24 04:00 01/11/24 03:00 100 01/11/24 02:00 96 Room Air 01/11/24 00:17 96 Room Air 01/11/24 00:10 01/10/24 23:57 96 Room Air Laboratory Results CBC notes a hemoglobin of 14.4, hematocrit 43.3, white count 10.7, and a platelet count of 236,000. Electrolytes noted sodium of 141, potassium 3.6, chloride 106, bicarb 27, BUN 20, creatinine 0.83, and a glucose of 109. Initial high-sensitivity troponin was 12.7 with a follow-up value 13.3. TSH is normal at 3.27. Diagnostic Findings Echocardiogram notes normal left trickle systolic function with ejection fraction of 60 to 65%. There is disproportionate upper septal thickening. Mild mitral and tricuspid regurgitation. EKG notes sinus rhythm without abnormalities. Chest x-ray shows no acute disease. PG Care Time/CCT Total # of Minutes Spent Total Time Spent with Patient: Total time spent is greater than 50% in coordination of care (as documented) at patient's floor/unit and/or counseling patient: Coding Level of Care Code 52362 IN/OBS CONSULT LVL 4,60M Diagnoses Paroxysmal atrial fibrillation I48.0 Chest pain syndrome R07.9 Hypertension I10 Hyperlipidemia E78.5
--- NOTE | 2024-01-11 13:43 | Discharge Summary ---
Discharge Summary Date of Service January 11, 2024 Principal Dx & Hospital Course #1 = Principal Diagnosis (1) Atrial fibrillation with rapid ventricular response: Patient was monitored on telemetry and treated with IV Cardizem. She converted to NSR. A fib lasted for 2 hours and she had no elevation of troponin. Cardiology evaluation was completed and advised Apixaban for anticoagulation for CHADS2 score of 2. Also was advised to take metoprolol tartrate as needed for episodes of atrial fibrillation. Admission HPI Per Admitting Provider Taryn Perry is a 63 year-old female with past medical history of acid reflux, HTN, HLD, asthma, obesity who presented to the ED after awakening overnight to chest pain and palpitations. She has a history of paroxysmal atrial fibrillation , notes her only prior episode occurred in the mid while she was in the hospital with a broken leg. In 2021 she was seen by [facility] [place] cardiology for paroxysmal a. fib and had a 30 day event monitor which did not show any episodes of atrial fibrillation. She states that this past week has been a bit stressful as her lljxsm-fi-wsi and in the past few days she has been busy with family in town/services etc, also endorses that yesterday she ate notably more salt that usual. Otherwise she has been feeling well, denies fever/body aches/chills. Endorses an occasional cough associated with post nasal drip but denies shortness of breath. Denies changes in bowel or bladder habits. At time of encounter, patient is in normal sinus rhythm and states her prior symptoms have resolved. Patient follows with weight management and endorses recently starting Naltrexone for food cravings, has been on it for approximately two weeks, states she has tolerated it well without side effects. She denies any other recent changes to her home medications. ED Course: -Diltiazem IV Push -CXR, CTA chest, CBC, CMP Discharge Exam Resting comfortably Lungs clear to auscultation Heart RRR PA Soft, NT, ND, BS+ Skin no rash Updated Medication List Medication Instructions Recorded Confirmed Type aspirin 81 mg tablet,delayed 81 mg PO DAILY #90 tabs 03/03/19 01/11/24 Rx release (Adult Low Dose Aspirin) azelaic acid 15 % topical gel 1 appln topical .COMPLEX PRN 03/07/19 01/11/24 Rx (Finacea) rosacea #50 grams coenzyme Q10 100 mg capsule 100 mg PO QAM 07/08/19 01/11/24 History cyanocobalamin (vitamin B-12) 2,500 mcg PO DAILY 07/08/19 01/11/24 History 2,500 mcg tablet cholecalciferol (vitamin D3) 25 5,000 unit PO DAILY 12/14/20 01/11/24 History mcg (1,000 unit) capsule fluticasone 250 mcg-salmeterol 50 1 inh inhalation BID PRN wheezing 04/07/22 01/11/24 Rx mcg/dose blistr powdr for #60 ea inhalation (Advair Diskus) calcium carbonate (Calcium 500) 1,000 mg PO DAILY 12/11/22 01/11/24 History sertraline 25 mg tablet 25 mg PO DAILY #90 tabs 04/03/23 01/11/24 Rx loratadine 10 mg tablet 10 mg PO DAILY PRN allergy 10/07/23 01/11/24 Rx symptoms #100 tabs atorvastatin 10 mg tablet 10 mg PO QPM #90 tabs 12/01/23 01/11/24 Rx metformin 500 mg tablet,extended 500 mg PO BID #60 tabs 12/01/23 01/11/24 Rx release 24 hr naltrexone 50 mg tablet 25 mg (1/2 x 50 mg) PO DAILY #15 12/21/23 01/11/24 Rx tabs albuterol sulfate 90 mcg/actuation 1 inh inhalation QID PRN Shortness 01/11/24 01/11/24 History aerosol inhaler Of Breath Or Wheezing apixaban 5 mg tablet (Eliquis) 5 mg PO BID #60 tabs 01/11/24 Rx famotidine 20 mg tablet 0 mg PO DAILY 01/11/24 01/11/24 History metoprolol tartrate 25 mg tablet 25 mg PO DAILY PRN irregular heart 01/11/24 Rx beat / palpitations #30 tabs Hospital Stay Data Consultations 01/11/24 02:20 ED Decision to Admit Stat 01/11/24 05:16 Consult Cardiology Routine Diagnostic Imagining Performed 01/11/24 00:08 CT angio chest PE protocol Stat Pending Results Patient Have Any Pending Studies at Discharge: No Discharge Instructions Given to Patient (Per Discharging Provider) Follow up with primary care in 5-7 days Follow up with cardiology in 3-4 weeks Total Time Total Time Spent Total Time Spent (In Minutes): 40 min Coding Level of Care Code 72953 INP/OBS DISCH >30 MIN Diagnoses Atrial fibrillation with rapid ventricular response I48.91
[2024-01-11] MEDS ORDERED: ATORVASTATIN 10 MG TAB PO SCH (21:00)
--- NOTE | 2024-01-12 06:54 | Electrocardiogram Report ---
Test Reason : Blood Pressure : / mmHG Vent. Rate : 123 BPM Atrial Rate : 000 BPM P-R Int : 000 ms QRS Dur : 082 ms QT Int : 278 ms P-R-T Axes : 000 -01 089 degrees QTc Int : 398 ms Atrial fibrillation with rapid ventricular response Nonspecific ST and T wave abnormality Abnormal ECG When compared with ECG of 06-DEC-2007 06:16, Atrial fibrillation has replaced Sinus rhythm Vent. rate has increased BY 72 BPM Confirmed by Sawyer Zmaora ([id number]) on 01/12/2024 6:54:26 AM Referred By: REFERRED SELF Confirmed By:Sawyer Zamora
--- NOTE | 2024-01-12 06:55 | Electrocardiogram Report ---
Test Reason : Blood Pressure : / mmHG Vent. Rate : 069 BPM Atrial Rate : 069 BPM P-R Int : 178 ms QRS Dur : 078 ms QT Int : 410 ms P-R-T Axes : 048 -09 045 degrees QTc Int : 439 ms Normal sinus rhythm Minimal voltage criteria for LVH, may be normal variant ( R in aVL ) Borderline ECG When compared with ECG of 11-JAN-2024 00:05, (unconfirmed) Sinus rhythm has replaced Atrial fibrillation Vent. rate has decreased BY 54 BPM Non-specific change in ST segment in Inferior leads ST no longer depressed in Anterolateral leads Confirmed by Sawyer Zamora ([id number]) on 01/12/2024 6:55:07 AM Referred By: REFERRED SELF Confirmed By:Sawyer Zamora
--- NOTE | 2024-01-14 19:39 | Billing Data ---
Date of Service January 14, 2024 Coding Level of Care Code 76519 INT INP/OBS CARE
== END 2024-01-11 13:48 | disposition home or self-care (01) ==
LOC: 2S 23:55 → ED 23:55 → SUATTDRO 01-11 03:45 → 2S 01-11 04:46
DX: J45.909 Unspecified asthma, uncomplicated; E66.9 Obesity, unspecified; Z79.01 Long term (current) use of anticoagulants; I48.91 Unspecified atrial fibrillation; R07.9 Chest pain, unspecified; R73.03 Prediabetes; Z79.82 Long term (current) use of aspirin; K21.9 Gastro-esophageal reflux disease without esophagitis; Z79.84 Long term (current) use of oral hypoglycemic drugs; Z82.49 Family history of ischemic heart disease and other diseases of the circulatory system; I10 Essential (primary) hypertension; Z87.891 Personal history of nicotine dependence; Z79.899 Other long term (current) drug therapy; E78.5 Hyperlipidemia, unspecified; Z68.38 Body mass index [BMI] 38.0-38.9, adult; Z79.51 Long term (current) use of inhaled steroids